=== PATIENT | female | born 1960 | race African-American/Black ===

== ENCOUNTER 2017-01-29 16:37 | Emergency (ER) | payer OTHER ==
[~2017-01-29] VITALS: Ht 162.6 cm; Wt 113.4 kg
[~2017-01-29 16:37] MED LIST: CLIN300C2 PO; FAMO-90 PO; METO25TA PO
[2017-01-29 17:25] VITALS: BP 147/75
--- NOTE | 2017-01-29 17:30 | NUR ---
PER DR PUTNAM PT SEND BACK TO THE LOBBY
[2017-01-29 17:48] VITALS: BP 147/75
--- NOTE | 2017-01-29 17:48 | NUR ---
PER PT REQUEST, PT GIVEN MEDICAL CLEARANCE FOR LONG-TERM BY ER MD DR PUTNAM; NO DISCHARGE PAPER WORK GIVEN PER DR PUTNAM; PT HAS NO OTHER COMPLAINT, ABLE TO USE OWN WHEEL CHAIR FOR MOBILITY; PT AAO X 4, RR EVEN AND UNLABORED, STATES NO PAIN OR DISCOMFORT AT THIS TIME.
== END 2017-01-29 17:48 | disposition home or self-care (01) ==
LOC: MED 16:37
DX: Z00.00 Encounter for general adult medical examination without abnormal findings (principal); Z79.899 Other long term (current) drug therapy
CPT/HCPCS: 99281